=== PATIENT | female | born 1995 | race Caucasian/White ===

== ENCOUNTER 2021-09-26 22:55 | Outpatient (CLI) | payer MEDICAID, SELFPAY ==
[2021-09-26 23:07] VITALS: BP 155/79; PULSE 103
[2021-09-26 23:13] VITALS: RESP 16
[2021-09-26 23:16] VITALS: BMI 33.3
[2021-09-26 23:20] VITALS: BP 147/71; PULSE 99
[2021-09-26 23:30] VITALS: BP 139/69; PULSE 96
[2021-09-26 23:40] VITALS: BP 129/77; PULSE 90
[2021-09-27] VITALS: BP 148/78; PULSE 88
[2021-09-27 00:03] LABS: Basophils # 0.1 10^3/uL (0.0-0.1); Basophils % 0.3 %; Eosinophils # 0.1 10^3/uL (0.0-0.8); Eosinophils % 0.4 %; Hematocrit 30.8 % (37.0-47.0); Hemoglobin 9.9 g/dL (11.5-15.3); Lymphocytes # 2.4 10^3/uL (0.8-4.8); Lymphocytes % 16.2 %; Mean Corpuscular HGB Conc 32.1 g/dL (30.0-36.0); Mean Corpuscular Hemoglobin 26.3 pg (28.0-34.0); Mean Corpuscular Volume 81.9 fl (81-99); Mean Platelet Volume 10.8 fL (7.4-10.4); Monocytes # 0.8 10^3/uL (0.2-0.9); Monocytes % 5.3 %; Neutrophils # 11.09 10^3/uL (1.8-7.7); Neutrophils % 76.2 %; Nucleated Red Blood Cells % 0 %; Platelet Count 347 10^3/cmm (130-400); Red Blood Count 3.76 10^6/uL (4.1-5.3); Red Cell Distribution Width 12.8 % (12.1-15.1); White Blood Count 14.6 10^3/uL (4.0-10.0)
[2021-09-27 00:10] VITALS: BP 161/90; PULSE 89
[2021-09-27 00:20] VITALS: BP 147/78; PULSE 90
[2021-09-27 00:30] VITALS: BP 139/71; PULSE 94
[2021-09-27 00:31] LABS: Urine Creatinine 33 mg/dL (28-217); Urine Protein Random 5 mg/dL
[2021-09-27 00:32] LABS: Albumin Level 3.6 g/dL (3.5-5.2); Alkaline Phosphatase 110 IU/L (35-105); Chloride 103 mmol/L (98-107); Potassium 3.7 mmol/L (3.5-5.1); Sodium 136 mmol/L (136-145)
[2021-09-27 00:33] LABS: UPRO/UCREAT Ratio 0.15 mg/mg CR
[2021-09-27 00:35] LABS: Add Urine Culture? No; Add Urine Microscopic? YES; Bacteria Urine 2+ /hpf; Bilirubin Urine Neg (Negative); Blood Urine Neg (Negative); Glucose Urine UA Norm (Normal); Ketones Urine Negative (Negative); Leukocyte Esterase Urine 1+ (Negative); Nitrate Urine Negative (Negative); Protein Urine Neg (Negative); RBC Urine 0-4 /hpf (0-2); Urine Appearance Clear (CLEAR); Urine Color Colorless (Yellow); Urobilinogen Urine Norm (Negative); WBC Urine 15-25 /hpf (0-5); pH Urine 7 (5-7)
[2021-09-27 00:40] VITALS: BP 135/72; PULSE 84
[2021-09-27 00:46] LABS: Alanine Aminotransferase 8 U/L (0-33); Anion Gap 16.7 (5-19); Aspartate Amino Transferase 9 U/L (0-32); Blood Urea Nitrogen 7 mg/dL (6-20); Calcium 8.9 mg/dL (8.5-10.5); Carbon Dioxide 20 mmol/L (22-29); Glomerular Filtration Rate 190.1 mL/min (90-130); Glucose 107 mg/dL (65-115); Osmolality Calculated 280 mOsm/kg (285-295); Total Bilirubin 0.2 mg/dL (0.15-1.2); Total Protein 6.6 g/dL (6.6-8.7); Uric Acid 3.6 mg/dL (2.4-5.7)
[2021-09-27 00:50] VITALS: BP 135/68; PULSE 90
== END 2021-09-27 01:07 | disposition home or self-care (01) ==
LOC: OPOB 22:59 → OBGYN 22:59
PROVIDERS: Visit Provider Family Medicine
DX: O16.9 Unspecified maternal hypertension, unspecified trimester (principal); Z3A.00 Weeks of gestation of pregnancy not specified
CPT/HCPCS: 36415; 59025; 80053; 81001; 81003; 82570; 84156; 84550; 85025; 99211

== ENCOUNTER 2021-10-01 00:07 | Outpatient (CLI) | payer MEDICAID, SELFPAY ==
[2021-10-01 00:16] VITALS: BMI 34.0
[2021-10-01 00:19] VITALS: BP 144/81; PULSE 100
[2021-10-01 00:45] VITALS: RESP 16
[2021-10-01 01:13] LABS: Nitrazine Paper, PH Inconclusive
[2021-10-01 01:21] LABS: Actim Prom Negative
[2021-10-01 01:25] VITALS: BP 129/64; PULSE 102; TEMP 35.9
== END 2021-10-01 01:43 | disposition home or self-care (01) ==
LOC: OPOB 00:09 → OBGYN 00:10
PROVIDERS: Visit Provider Family Medicine
DX: O26.899 Other specified pregnancy related conditions, unspecified trimester (principal); Z3A.00 Weeks of gestation of pregnancy not specified; N89.8 Other specified noninflammatory disorders of vagina
CPT/HCPCS: 83986; 84112

== ENCOUNTER 2021-10-03 13:50 | Outpatient (CLI) | payer MEDICAID, SELFPAY ==
[2021-10-03] VITALS (7 sets, daily range): BP systolic 142–169; BP diastolic 80–86; PULSE 80–96; RESP 18; TEMP 35.8–36.8; BMI 33.5
[2021-10-03 14:31] LABS: Basophils % 0.2 %; Eosinophils % 0.3 %; Hematocrit 31.5 % (37.0-47.0); Hemoglobin 10.1 g/dL (11.5-15.3); Lymphocytes # 1.7 10^3/uL (0.8-4.8); Lymphocytes % 14.4 %; Mean Corpuscular HGB Conc 32.1 g/dL (30.0-36.0); Mean Corpuscular Hemoglobin 26.1 pg (28.0-34.0); Mean Corpuscular Volume 81.4 fl (81-99); Mean Platelet Volume 10.7 fL (7.4-10.4); Monocytes # 0.6 10^3/uL (0.2-0.9); Monocytes % 5.1 %; Neutrophils # 9.25 10^3/uL (1.8-7.7); Nucleated Red Blood Cells % 0 %; Platelet Count 371 10^3/cmm (130-400); Red Blood Count 3.87 10^6/uL (4.1-5.3); Red Cell Distribution Width 13.1 % (12.1-15.1); White Blood Count 11.7 10^3/uL (4.0-10.0)
[2021-10-03 14:45] LABS: Add Urine Microscopic? YES; Bilirubin Urine Neg (Negative); Blood Urine Neg (Negative); Glucose Urine UA Norm (Normal); Ketones Urine Negative (Negative); Leukocyte Esterase Urine 2+ (Negative); Nitrate Urine Negative (Negative); Protein Urine Neg (Negative); Urine Appearance Clear (CLEAR); Urine Color Yellow (Yellow); Urobilinogen Urine Norm (Negative); pH Urine 6.5 (5-7)
[2021-10-03 14:46] LABS: Bacteria Urine 1+ /hpf; Squamous Epithelial Cell Urine 15-25 /hpf (0-5); WBC Urine 0-4 /hpf (0-5)
[2021-10-03 14:47] LABS: Add Urine Culture? Yes
[2021-10-03 15:02] LABS: Urine Creatinine 101 mg/dL (28-217); Urine Protein Random 10 mg/dL
[2021-10-03 15:03] LABS: Alanine Aminotransferase 8 U/L (0-33); Albumin Level 3.8 g/dL (3.5-5.2); Alkaline Phosphatase 111 IU/L (35-105); Anion Gap 16.9 (5-19); Aspartate Amino Transferase 8 U/L (0-32); Blood Urea Nitrogen 6 mg/dL (6-20); Calcium 8.7 mg/dL (8.5-10.5); Carbon Dioxide 20 mmol/L (22-29); Chloride 100 mmol/L (98-107); Globulin 3.1 g/dL (1.3-4.6); Glomerular Filtration Rate 190.1 mL/min (90-130); Glucose 95 mg/dL (65-115); Osmolality Calculated 273 mOsm/kg (285-295); Potassium 3.9 mmol/L (3.5-5.1); Sodium 133 mmol/L (136-145); Total Bilirubin 0.2 mg/dL (0.15-1.2); Total Protein 6.9 g/dL (6.6-8.7); Uric Acid 4.5 mg/dL (2.4-5.7)
== END 2021-10-03 15:30 | disposition home or self-care (01) ==
LOC: OPOB 13:57 → OBGYN 13:58
PROVIDERS: Visit Provider Family Medicine
DX: O26.899 Other specified pregnancy related conditions, unspecified trimester (principal); Z3A.00 Weeks of gestation of pregnancy not specified
CPT/HCPCS: 36415; 59025; 80053; 81001; 82570; 84156; 84550; 85025; 87086; 99211

== ENCOUNTER 2021-10-15 10:32 | Outpatient (CLI) | payer MEDICAID, SELFPAY ==
[2021-10-15 10:27] VITALS: BMI 34.1
[2021-10-15 10:53] VITALS: BP 137/81; PULSE 77
[2021-10-15 11:07] VITALS: BP 130/81; PULSE 81
[2021-10-15 11:15] VITALS: RESP 16
[2021-10-15 11:17] VITALS: BP 125/79; PULSE 78
[2021-10-15 11:46] VITALS: RESP 16
== END 2021-10-15 11:20 | disposition home or self-care (01) ==
LOC: OPOB 10:33 → OBGYN 10:33
PROVIDERS: Visit Provider Family Medicine
DX: O16.9 Unspecified maternal hypertension, unspecified trimester (principal); Z3A.00 Weeks of gestation of pregnancy not specified
CPT/HCPCS: 59025

== ENCOUNTER 2021-10-17 10:30 | Outpatient (CLI) | payer MEDICAID, SELFPAY ==
[2021-10-17] VITALS (13 sets, daily range): BP systolic 123–179; BP diastolic 71–106; PULSE 75–101; RESP 18; BMI 34.1
[2021-10-17 12:01] LABS: Basophils % 0.2 %; Eosinophils % 0.3 %; Hematocrit 30.8 % (37.0-47.0); Hemoglobin 9.8 g/dL (11.5-15.3); Lymphocytes # 1.5 10^3/uL (0.8-4.8); Lymphocytes % 12.3 %; Mean Corpuscular HGB Conc 31.8 g/dL (30.0-36.0); Mean Corpuscular Hemoglobin 25.4 pg (28.0-34.0); Mean Corpuscular Volume 79.8 fl (81-99); Mean Platelet Volume 11.2 fL (7.4-10.4); Monocytes # 0.7 10^3/uL (0.2-0.9); Monocytes % 5.8 %; Neutrophils # 9.89 10^3/uL (1.8-7.7); Neutrophils % 80.4 %; Nucleated Red Blood Cells % 0 %; Platelet Count 403 10^3/cmm (130-400); Red Blood Count 3.86 10^6/uL (4.1-5.3); Red Cell Distribution Width 13.2 % (12.1-15.1); White Blood Count 12.3 10^3/uL (4.0-10.0)
[2021-10-17 12:06] LABS: Add Urine Microscopic? YES; Alanine Aminotransferase 8 U/L (0-33); Albumin Level 3.8 g/dL (3.5-5.2); Alkaline Phosphatase 121 IU/L (35-105); Aspartate Amino Transferase 13 U/L (0-32); Bilirubin Urine Neg (Negative); Blood Urea Nitrogen 8 mg/dL (6-20); Blood Urine Neg (Negative); Calcium 8.8 mg/dL (8.5-10.5); Carbon Dioxide 21 mmol/L (22-29); Chloride 101 mmol/L (98-107); Globulin 3.2 g/dL (1.3-4.6); Glomerular Filtration Rate 190.1 mL/min (90-130); Glucose 133 mg/dL (65-115); Glucose Urine UA Norm (Normal); Ketones Urine Negative (Negative); Leukocyte Esterase Urine 2+ (Negative); Nitrate Urine Negative (Negative); Osmolality Calculated 280 mOsm/kg (285-295); Protein Urine Neg (Negative); RBC Urine 0-4 /hpf (0-2); Sodium 135 mmol/L (136-145); Specific Gravity, Urine 1.015 (1.005-1.030); Total Bilirubin 0.2 mg/dL (0.15-1.2); Uric Acid 4.4 mg/dL (2.4-5.7); Urine Appearance Clear (CLEAR); Urine Color Yellow (Yellow); Urobilinogen Urine Norm (Negative); WBC Urine 15-25 /hpf (0-5); pH Urine 6 (5-7)
[2021-10-17 12:07] LABS: Add Urine Culture? Yes; Bacteria Urine 2+ /hpf; Mucus Urine 2+ /hpf
[2021-10-17 12:20] LABS: Urine Creatinine 120 mg/dL (28-217); Urine Protein Random 10 mg/dL
[2021-10-17 12:21] LABS: UPRO/UCREAT Ratio 0.08 mg/mg CR
--- NOTE | 2021-10-17 13:45 | PM.MISC ---
Miscellaneous Note Note: The patient presented to labor and delivery triage due to elevated blood pressure. Her blood pressure at work was in the 160s over 125 range. She had a headache and did not feel well. This has happened before while at work. She says that she had felt well when not working and has been worse while working. She is a G2, P1 at 37.1 weeks gestation. Her EDC is 11/06/2021. The patient was evaluated in triage and her blood pressures were initially in the 170s, however they gradually decreased to the 120s systolic. I came and evaluated the patient and she currently denies any chest pains, headaches, seeing flashes of light, nausea, vomiting, vaginal bleeding, leakage of fluid, fever. Her preeclamptic lab work-up was not suggestive of preeclampsia. I had a lengthy discussion with the patient regarding her elevated blood pressures that are consistent with gestational hypertension as well as the potential risks for complications that may include stroke or placental abruption as well as many other possible problems. We discussed induction of labor at this time due to these risks. She does not want to be induced at this time if at all possible as her is out of town until Friday of next week. She would like to be discharged home. We decided that we could give her a trial of bedrest to see if this sufficiently helps with her blood pressure. She is to be off of work until after delivery. The patient was advised not to go out shopping or do other things in order to keep her blood pressure down. She was advised to start labetalol 100 mg twice a day and checks her blood pressure twice a day. She is to get a 24-hour urine protein to be sure that she is not developing preeclampsia. She is to return for a NST on Friday. If her blood pressures are spiking where she is getting symptoms consistent with severe features, she was instructed to return to L&D right away. I let her know that I am happy to get her induced at any point if needed. I recommended that she move up her appointment with Dr. Fernandez to Friday if possible. She may need to be induced next week based on blood pressure readings. Currently the patient feels well with blood pressures in the 120s and was given strict precautions. All questions were answered.
--- NOTE | 2021-10-17 14:01 | PC.NURSE ---
Addendum entered by Frances Grayson RN 10/17/21 14:04: per Original Note: this nurse called in a prescription for labetalol 100mg, PO, BID, quantity 60 no refills to [facility] today @ 1400.
== END 2021-10-17 13:58 | disposition home or self-care (01) ==
LOC: OPOB 10:40 → OBGYN 10:41
PROVIDERS: Visit Provider Family Medicine
DX: O16.9 Unspecified maternal hypertension, unspecified trimester (principal); Z3A.00 Weeks of gestation of pregnancy not specified
CPT/HCPCS: 36415; 59025; 80053; 81001; 82570; 84156; 84550; 85025; 87086; 99211

== ENCOUNTER 2021-10-19 10:05 | Outpatient (CLI) | payer MEDICAID, SELFPAY ==
[2021-10-19 10:19] VITALS: BP 159/90; PULSE 104; TEMP 35.9
[2021-10-19 10:31] VITALS: BMI 34.1
[2021-10-19 10:40] VITALS: BP 136/71; PULSE 93
[2021-10-19 11:50] LABS: Urine Total Protein 6.1 mg/dL (0-150)
[2021-10-19 11:58] LABS: Total Volume, Urine 2375 mL; Urine Total Protein 24 Hour 144.9 mg/24hr (0-150)
== END 2021-10-19 11:10 | disposition home or self-care (01) ==
LOC: OPOB 10:08 → OBGYN 10:11
PROVIDERS: Visit Provider Family Medicine
DX: O16.9 Unspecified maternal hypertension, unspecified trimester (principal); Z3A.00 Weeks of gestation of pregnancy not specified
CPT/HCPCS: 59025; 84156; 99211

== ENCOUNTER 2021-10-23 10:08 | Outpatient (CLI) | payer MEDICAID, SELFPAY ==
[2021-10-23 10:10] VITALS: BMI 34.1
[2021-10-23 10:22] VITALS: RESP 16
[2021-10-23 10:23] VITALS: BP 132/84; PULSE 92; TEMP 35.9
[2021-10-23 10:24] VITALS: TEMP 35.8
[2021-10-23 10:39] VITALS: BP 133/82; PULSE 90
== END 2021-10-23 10:47 | disposition home or self-care (01) ==
LOC: OPOB 10:09 → OBGYN 10:22
PROVIDERS: Visit Provider Family Medicine
DX: O26.899 Other specified pregnancy related conditions, unspecified trimester (principal); Z3A.00 Weeks of gestation of pregnancy not specified
CPT/HCPCS: 59025

== ENCOUNTER 2021-10-24 17:06 | Inpatient (IN) | payer MEDICAID, SELFPAY ==
[2021-10-24] VITALS (37 sets, daily range): BP systolic 125–171; BP diastolic 69–89; PULSE 76–110; RESP 15; O2SAT 86–100; BMI 34.2
[2021-10-24] MEDS: oxytocin 30 UNIT/500 ML BAG IV (18:00)
[2021-10-24] MEDS: dextrose 5%-lactated ringers 1,000 ML 125 ML IV (18:04)
[2021-10-24 18:18] LABS: Basophils % 0.2 %; Eosinophils % 0.2 %; Hematocrit 30.9 % (37.0-47.0); Hemoglobin 9.6 g/dL (11.5-15.3); Lymphocytes # 1.3 10^3/uL (0.8-4.8); Lymphocytes % 10.4 %; Mean Corpuscular HGB Conc 31.1 g/dL (30.0-36.0); Mean Corpuscular Hemoglobin 25.5 pg (28.0-34.0); Mean Corpuscular Volume 82.2 fl (81-99); Mean Platelet Volume 11.2 fL (7.4-10.4); Monocytes # 0.7 10^3/uL (0.2-0.9); Monocytes % 5.3 %; Neutrophils % 82.6 %; Nucleated Red Blood Cells % 0 %; Platelet Count 341 10^3/cmm (130-400); Red Blood Count 3.76 10^6/uL (4.1-5.3); Red Cell Distribution Width 13.4 % (12.1-15.1); White Blood Count 12.7 10^3/uL (4.0-10.0)
--- NOTE | 2021-10-24 18:36 | ANES.PREANE2 ---
Pre-Anesthetic Assessment Height/Weight: Height 1.7 m Weight 99.337 kg Pulse Resp BP Pulse Ox 88 15 151/89 97 10/24/21 18:27 10/24/21 17:24 10/24/21 18:27 10/24/21 17:41 Familial anesthetic complications: None Was Beta Prince taken within 24 hours: N/A Was Clonidine taken within 24 hours: N/A Social No alcohol and No tobacco Exam alert, oriented x 3, clear to auscultation bilaterally and regular rate & rhythm Airway Submandibular: within normal limits Cervical ROM: within normal limits Mallampati: Class II Dentition: full History/ROS No significant history except as noted GI Gastroesophageal Reflux Disease Anesthetic Plan ASA status: 2 Anesthesia: Regional (specify below) (Labor Epidural) Medications/Allergies Home Medications Medication Instructions Recorded Confirmed Last Taken Type + DHA 1 tab PO DAILY 09/26/21 10/23/21 09/25/21 History pantoprazole 20 mg tablet,delayed 20 mg PO DAILY 09/26/21 10/23/21 09/25/21 History release Allergies Allergy/AdvReac Type Severity Reaction Status Date / Time No Known Allergies Allergy Verified 10/24/21 17:35 Current Medications Generic Name Dose Route Start Last Admin Trade Name Freq PRN Reason Stop Dose Admin Dextrose/Lactated Ringer's 1,000 mls @ 125 mls/hr 10/24/21 17:30 10/24/21 18:04 Dextrose 5%-Lactated Ringers IV 125 mls/hr .Q8H JARRED Administration Oxytocin 30 unit in 500 mls @ 1 mls/hr 10/24/21 17:30 10/24/21 18:15 Pitocin IV 3 milliunit/min .Q24H JARRED 3 mls/hr Titration Protocol 1 MILLIUNIT/MIN PFSH Anesthesia Female Reproductive History Date of last menstrual period: 01/29/21 : 2 Data Anesthesia : 10/24/21 17:30 10/24/21 17:30 Short CBC 10/24/21 Range/Units 17:30 WBC 12.7 H (4.0-10.0) 10^3/uL Hgb 9.6 L (11.5-15.3) g/dL Hct 30.9 L (37.0-47.0) % MCV 82.2 (81-99) fl Plt Count 341 (130-400) 10^3/cmm Neut % (Auto) 82.6 % Neut # (Auto) 10.50 H (1.8-7.7) 10^3/uL Cardiac Studies: No Data to Display
[2021-10-24 18:42] LABS: Alanine Aminotransferase 7 U/L (0-33); Albumin Level 3.7 g/dL (3.5-5.2); Alkaline Phosphatase 137 IU/L (35-105); Anion Gap 16.9 (5-19); Aspartate Amino Transferase 9 U/L (0-32); Blood Urea Nitrogen 8 mg/dL (6-20); Calcium 8.8 mg/dL (8.5-10.5); Carbon Dioxide 19 mmol/L (22-29); Chloride 102 mmol/L (98-107); Globulin 2.9 g/dL (1.3-4.6); Glomerular Filtration Rate 190.1 mL/min (90-130); Glucose 103 mg/dL (65-115); Osmolality Calculated 277 mOsm/kg (285-295); Potassium 3.9 mmol/L (3.5-5.1); Sodium 134 mmol/L (136-145); Total Bilirubin 0.2 mg/dL (0.15-1.2); Total Protein 6.6 g/dL (6.6-8.7); Uric Acid 4.6 mg/dL (2.4-5.7)
[2021-10-24 20:29] LABS: Add Urine Culture? No; Add Urine Microscopic? YES; Bacteria Urine 2+ /hpf; Bilirubin Urine Neg (Negative); Blood Urine Neg (Negative); Calcium Oxalate Crystals Urine 0-4 /hpf; Glucose Urine UA Norm (Normal); Ketones Urine Negative (Negative); Leukocyte Esterase Urine Trace (Negative); Nitrate Urine Negative (Negative); Protein Urine Neg (Negative); RBC Urine 0-4 /hpf (0-2); Urine Appearance Clear (CLEAR); Urine Color Yellow (Yellow); Urobilinogen Urine Norm (Negative); pH Urine 6 (5-7)
[2021-10-24 20:33] LABS: Urine Creatinine 148 mg/dL (28-217); Urine Protein Random 18 mg/dL
[2021-10-24 20:34] LABS: UPRO/UCREAT Ratio 0.12 mg/mg CR
[2021-10-24] MEDS: lactated ringers 1,000 ML 999 ML IV (22:25)
--- NOTE | 2021-10-24 23:40 | P.ANES_ITS ---
Anesthesia Procedures Procedure/Date: 10/24/21 Epidural: Time Out Performed: Yes Consents Signed: Procedure Consent Consent: requested by attending/covering physician and from patient Lumbar Level: L3-L4 Epidural position: sitting Epidural procedure: sterile prep of area, 1% lidocaine to numb the area, 18 g needle, neg for paresthesia, test d ose given, 1.5% xylocaine 1:200k epi (5cc), 0.2% Ropivacaine bolus ml (5cc and Fentanyl 100mcg), placed PCEA, no systemic response, sterile dressing applied, L.U.D. no apparent complications and 0.2% Ropiavacaine @ mls/hr (13cc/hour) Additional Comments: SAM at 7cm. cath placed 2.5 cm into epid space. Pt tolerated well
[2021-10-25] VITALS (33 sets, daily range): BP systolic 120–147; BP diastolic 58–82; PULSE 70–107; RESP 18; TEMP 36.3–36.7; O2SAT 92–98
--- NOTE | 2021-10-25 00:53 | PM.OPHPUD ---
Labor & Delivery H&P Update Date of Procedure: October 25, 2021 Date H&P Performed: 10/24/21 Admission Diagnosis: 38 weeks 1 day gestation pre-eclampsia induced HTN Other information: The patient's was complicated by -induced hypertension. On the day of admission she was complaining of intractable headache and scotomata therefore she was likely progressing towards preeclampsia.
--- NOTE | 2021-10-25 00:56 | PM.DELIVERY ---
Delivery Note: Date of delivery: October 25, 2021 Pre-Delivery Course: The patient had routine care at [facility]. Her was complicated by -induced hypertension. Up until 36 weeks gestation her blood pressures were only mildly elevated so she did not require antihypertensives. At 37 weeks she was offered induction but the father of the baby was out of town for work so she was placed on bedrest and labetalol. The patient was very good about monitoring her blood pressures at home and since they were not severely elevated she did not routinely take the labetalol. At 38 weeks gestation father the baby was back home and patient was complaining of intractable headache and scotomata so she was sent to labor and delivery for induction. Delivery: This is a 26-year-old at 38 weeks 1 day gestation who was admitted for induction secondary to -induced hypertension progressing to preeclampsia. Her cervix was favorable and she was started on high-dose Pitocin. Through most of her labor she declined an epidural but decided at the last minute to receive 1 however she did not get much relief from it. She had spontaneous rupture of membranes approximately 1 hour prior to delivery. Fluid was clear. She had a normal spontaneous vaginal delivery of a viable male weight 3610 g, 7 pounds 15 ounces, Apgars 9 and 10 over an intact perineum. The was suctioned at delivery and placed on the mother's chest. The cord was clamped and cut. The placenta was delivered grossly intact and normal to inspection. There was a partial third-degree laceration that was sutured using 3-0 Vicryl in interrupted fashion. The second-degree laceration was then repaired using 3-0 chromic. Mother and were doing well after delivery. 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
[2021-10-25] MEDS: lanolin oint 7 gm 1 APPLIC TOPICAL (06:38)
[2021-10-25] MEDS: benzocaine-menthol 78 gm Canister 1 SPRAY TOPICAL (06:38)
[2021-10-25] MEDS: docusate sodium 100 mg Capsule PO ×2 (09:48→18:50)
[2021-10-25] MEDS: ibuprofen 800 mg tablet PO ×3 (09:48→21:16)
[2021-10-25] MEDS: prenatal vitamin Capsule 1 CAP PO (09:48)
[2021-10-25 14:08] LABS: Hematocrit 28.9 % (37.0-47.0); Hemoglobin 8.8 g/dL (11.5-15.3); Mean Corpuscular HGB Conc 30.4 g/dL (30.0-36.0); Mean Corpuscular Hemoglobin 25.4 pg (28.0-34.0); Mean Corpuscular Volume 83.3 fl (81-99); Mean Platelet Volume 11.1 fL (7.4-10.4); Platelet Count 301 10^3/cmm (130-400); Red Blood Count 3.47 10^6/uL (4.1-5.3); Red Cell Distribution Width 13.5 % (12.1-15.1); White Blood Count 13.8 10^3/uL (4.0-10.0)
[2021-10-26 02:37] VITALS: RESP 15
[2021-10-26 04:00] VITALS: BP 123/85; PULSE 64; RESP 12
[2021-10-26] MEDS: ibuprofen 800 mg tablet PO (07:32)
[2021-10-26] MEDS: docusate sodium 100 mg Capsule PO (07:32)
[2021-10-26] MEDS: prenatal vitamin Capsule 1 CAP PO (07:32)
--- NOTE | 2021-10-26 10:28 | P.DS_ITS ---
Discharge Providers Date of Admission: 10/24/21 17:06 Date of Discharge: October 26, 2021 Attending Provider at Admission: Cyndy Fernandez MD Attending Provider at Discharge: Cyndy Fernandez MD Reason for Visit Reason for Visit: PRE-E workup Hospital Course Hospital Course This is a 26-year-old G2 now P2 who was admitted for induction secondary to preeclampsia superimposed upon -induced hypertension. The patient's urine protein creatinine ratio was within normal limits but she was symptomatic with headache and scotomata. She had a normal spontaneous vaginal delivery of a viable male . She has done well . Her blood pressures have been in the normal range. She is ambulating, tolerating a regular diet, has decreased vaginal bleeding, and is comfortable with discharge home. Physical Exam Narrative: Alert and oriented, resting in bed, heart regular rate and rhythm, lungs clear to auscultation bilaterally, abdomen is soft and nontender, fundus is firm and U- 2, she has some slight generalized edema but no calf tenderness. Discharge Data Studies Completed and Pending Laboratory Results WBC 13.8 10^3/uL (4.0-10.0) H 10/25/21 13:50 RBC 3.47 10^6/uL (4.1-5.3) L 10/25/21 13:50 Hgb 8.8 g/dL (11.5-15.3) L 10/25/21 13:50 Hct 28.9 % (37.0-47.0) L 10/25/21 13:50 MCV 83.3 fl (81-99) 10/25/21 13:50 MCH 25.4 pg (28.0-34.0) L 10/25/21 13:50 MCHC 30.4 g/dL (30.0-36.0) 10/25/21 13:50 RDW 13.5 % (12.1-15.1) 10/25/21 13:50 Plt Count 301 10^3/cmm (130-400) 10/25/21 13:50 MPV 11.1 fL (7.4-10.4) H 10/25/21 13:50 Neut % (Auto) 82.6 % 10/24/21 17:30 Lymph % (Auto) 10.4 % 10/24/21 17:30 Mcdowell % (Auto) 5.3 % 10/24/21 17:30 Eos % (Auto) 0.2 % 10/24/21 17:30 Baso % (Auto) 0.2 % 10/24/21 17:30 Neut # (Auto) 10.50 10^3/uL (1.8-7.7) H 10/24/21 17:30 Lymph # (Auto) 1.3 10^3/uL (0.8-4.8) 10/24/21 17:30 Mcdowell # (Auto) 0.7 10^3/uL (0.2-0.9) 10/24/21 17:30 Eos # (Auto) 0.0 10^3/uL (0.0-0.8) 10/24/21 17:30 Baso # (Auto) 0.0 10^3/uL (0.0-0.1) 10/24/21 17:30 Nucleated RBC % (auto) 0 % 10/24/21 17:30 Nucleated RBCs # 0.0 /100WBC 10/24/21 17:30 Sodium 134 mmol/L (136-145) L 10/24/21 17:30 Potassium 3.9 mmol/L (3.5-5.1) 10/24/21 17:30 Chloride 102 mmol/L (98-107) 10/24/21 17:30 Carbon Dioxide 19 mmol/L (22-29) L 10/24/21 17:30 Anion Gap 16.9 (5-19) 10/24/21 17:30 BUN 8 mg/dL (6-20) 10/24/21 17:30 Creatinine 0.4 mg/dL (0.5-0.9) L 10/24/21 17:30 GFR Calculation 190.1 mL/min (90-130) H 10/24/21 17:30 Glucose 103 mg/dL (65-115) 10/24/21 17:30 Calculated Osmolality 277 mOsm/kg (285-295) L 10/24/21 17:30 Uric Acid 4.6 mg/dL (2.4-5.7) 10/24/21 17:30 Calcium 8.8 mg/dL (8.5-10.5) 10/24/21 17:30 Total Bilirubin 0.2 mg/dL (0.15-1.2) 10/24/21 17:30 AST 9 U/L (0-32) 10/24/21 17:30 ALT 7 U/L (0-33) 10/24/21 17:30 Alkaline Phosphatase 137 IU/L (35-105) H 10/24/21 17:30 Total Protein 6.6 g/dL (6.6-8.7) 10/24/21 17:30 Albumin 3.7 g/dL (3.5-5.2) 10/24/21 17:30 Globulin 2.9 g/dL (1.3-4.6) 10/24/21 17:30 Urine Color Yellow (Yellow) 10/24/21 18:29 Urine Appearance Clear (CLEAR) 10/24/21 18:29 Urine pH 6 (5-7) 10/24/21 18:29 Ur Specific [place] 1.020 (1.005-1.030) 10/24/21 18:29 Urine Protein Neg (Negative) 10/24/21 18:29 Urine Glucose (UA) Norm (Normal) 10/24/21 18:29 Urine Ketones Negative (Negative) 10/24/21 18:29 Urine Blood Neg (Negative) 10/24/21 18:29 Urine Nitrate Negative (Negative) 10/24/21 18:29 Urine Bilirubin Neg (Negative) 10/24/21 18:29 Urine Urobilinogen Norm mg/dL (Negative) 10/24/21 18:29 Ur Leukocyte Esterase Trace (Negative) H 10/24/21 18:29 Urine RBC 0-4 /hpf (0-2) H 10/24/21 18:29 Urine WBC 5-10 /hpf (0-5) H 10/24/21 18:29 Ur Squamous Epith Cells 10-15 /hpf (0-5) H 10/24/21 18:29 Calcium Oxalate Crystal 0-4 /hpf H 10/24/21 18:29 Amorphous Sediment Not Reportable 10/24/21 18:29 Urine Bacteria 2+ /hpf (NONE) H 10/24/21 18:29 U Random Total Protein 18 mg/dL 10/24/21 18:29 Urine Creatinine 148 mg/dL (28-217) 10/24/21 18:29 Protein/Creatinin Ratio 0.12 mg/mg CR 10/24/21 18:29 Vitals Last Vital Signs Temp 97.3 F L 10/25/21 16:25 Pulse 64 10/26/21 04:00 Resp 12 10/26/21 04:00 BP 123/85 10/26/21 04:00 Pulse Ox 98 10/25/21 16:24 Discharge Plan Discharge Patient Disposition: Home Condition: Stable Prescriptions: New docusate sodium 100 mg Capsule 100 mg PO BID Qty: 60 0RF ferrous sulfate 325 mg (65 mg iron) tablet,delayed release (DR/EC) 325 mg PO DAILY Qty: 30 2RF Continued pantoprazole 20 mg Tablet,Delayed Release (Dr/Ec) 20 mg PO DAILY 0RF + DHA 1 tab PO DAILY 0RF Discharge Orders: Discharge Order (Routine); Ordered 10/26/21 Ordered By: Cyndy Fernandez Referrals: Cyndy Fernandez MD [Physician] - 1 month Discharge Diet: Usual diet Discharge Activity: Limit activity as instructed Patient Instructions: Preeclampsia and Eclampsia After Delivery (GEN), OB Discharge Report, OB Food/Drug Interaction Guide, OB Home Care Instructions, OB Care at Home, Opioid Safety, OB Proud Parent Packet, OB Vaginal Deliveries Discharge Attestations Time Spent in Discharge Care*: less than 30 min Quality Metrics Clinical Quality Measures [ No reported AMI, CVA or VTE this stay] Coding Level of Care Code Acute Chg FW DC note
--- NOTE | 2021-10-26 12:39 | ANE.PACU2 ---
Inpatient post-anesthesia follow up: Airway intact: Yes Vital signs: Temperature 97.3 F Pulse Rate 64 Respiratory Rate 12 Blood Pressure 123/85 Pulse Oximetry 98 Oxygen Delivery Me thod Room Air Oxygen Flow Rate Fraction of Inspir ed Oxygen Hydration adequate: Yes Nausea and vomiting: No Pain level: 2 Mental status: Baseline
[2021-10-26 18:21] VITALS: BP 123/85; PULSE 64; RESP 12
== END 2021-10-26 13:50 | disposition home or self-care (01) | DRG 768 ==
PROVIDERS: Admitting Provider Family Medicine; Visit Provider Family Medicine
DX: O14.94 Unspecified pre-eclampsia, complicating childbirth (principal); Z37.0 Single live birth; O13.4 Gestational [pregnancy-induced] hypertension without significant proteinuria, complicating childbirth; O70.20 Third degree perineal laceration during delivery, unspecified; Z3A.38 38 weeks gestation of pregnancy
CPT/HCPCS: 36415; 59025; 59409; 80053; 81001; 82570; 84156; 84550; 85025; 85027; 99211; J2795; J3010

== ENCOUNTER → 2024-02-10 16:25 | Outpatient (BNVA) | payer MEDICAID, SELFPAY | PROVIDERS: Visit Provider Nurse Practitioner | DX: J02.9 Acute pharyngitis, unspecified (principal) | CPT/HCPCS: 87880 ==

== ENCOUNTER → 2024-05-12 13:24 | Outpatient (BNVA) | payer MEDICAID, SELFPAY | PROVIDERS: Visit Provider Nurse Practitioner | DX: J02.9 Acute pharyngitis, unspecified (principal) | CPT/HCPCS: 87880 ==